=== PATIENT | female | born 1980 | race Caucasian/White ===

== ENCOUNTER 2017-06-26 12:04 | Emergency (ER) | payer BC, OTHER ==
[~2017-06-26] VITALS: Ht 165.1 cm; Wt 58.1 kg
--- NOTE | 2017-06-26 13:26 | NUR ---
Pt to [facility] via w/c
--- NOTE | 2017-06-26 13:55 | NUR ---
Dr. Blakely at bedside for evaluation
[2017-06-26 14:20] VITALS: BP_SYST 139
--- NOTE | 2017-06-26 14:20 | NUR ---
Patient given written and verbal discharge instructions and verbalizes understanding. ER MD discussed with patient the results and treatment provided. Patient in stable condition. ID arm band removed. Rx of motrin, norco given. Patient educated on pain management and to follow up with PMD. Pain Scale 1/10. Opportunity for questions provided and answered.
== END 2017-06-26 14:20 | disposition home or self-care (01) ==
LOC: SED 12:04
DX: S93.402A Sprain of unspecified ligament of left ankle, initial encounter (principal); S83.92XA Sprain of unspecified site of left knee, initial encounter; W19.XXXA Unspecified fall, initial encounter; Y93.89 Activity, other specified; Y92.89 Other specified places as the place of occurrence of the external cause; Y99.8 Other external cause status
CPT/HCPCS: 73564; 81025; 99284

== ENCOUNTER 2020-08-01 12:59 | Emergency (ER) | payer MEDICAID, OTHER ==
[~2020-08-01] VITALS: Ht 165.1 cm; Wt 56.2 kg
[2020-08-01 13:05] VITALS: BP_SYST 118
--- NOTE | 2020-08-01 13:05 | NUR ---
Patient to ER bed 3 to gown for evaluation. Side rails up.
--- NOTE | 2020-08-01 13:10 | NUR ---
Pt walked in to ER with c/o headache 07/20 x2 days. Denies n/v at this time. V/S stable, pt is afebrile. Currently resting in bed, will continue to monitor.
--- NOTE | 2020-08-01 13:20 | NUR ---
ER Dr. Bishop at bedside examining patient.
[2020-08-01] MEDS ORDERED: KETOROLAC TROMETHAMINE 60 MG/2 ML VIAL IM ONE (13:30)
[2020-08-01] MEDS ORDERED: PROCHLORPERAZINE EDISYLATE 10 MG/2 ML VIAL IM ONE (13:30)
[2020-08-01 14:45] VITALS: BP_SYST 118
--- NOTE | 2020-08-01 14:45 | NUR ---
Patient given written and verbal discharge instructions and verbalizes understanding. ER MD discussed with patient the results and treatment provided. Patient in stable condition. ID arm band removed. No prescriptions given. Patient educated on pain management and to follow up with PMD. Pain Scale 0. Opportunity for questions provided and answered. Medication side effect fact sheet provided.
== END 2020-08-01 14:45 | disposition home or self-care (01) ==
LOC: SED 12:59
DX: G43.901 Migraine, unspecified, not intractable, with status migrainosus (principal)
CPT/HCPCS: 96372; 99284; J0780; J1885